=== PATIENT | female | born 1975 | race American Indian/Alaskan Native ===

== ENCOUNTER 2016-08-12 16:47 | Emergency (ER) | payer SELFPAY ==
[~2016-08-12] VITALS: Wt 65.1 kg
[2016-08-12] MEDS ORDERED: PHEN-616 PO (19:33)
[2016-08-12] MEDS ORDERED: NITR-58 PO (19:33)
[2016-08-12 19:38] LABS: URINE BLOOD (Dip) POC 2+ (NEGATIVE)
--- NOTE | 2016-08-12 19:43 | ERD ---
ER Documentation Chief Complaint Date/Time DATE: 08/12/16 TIME: 19:41 Chief Complaint PAIN WITH URINATION, ONSET 4 DAYS, NO VB HPI This is a 40-year-old female presenting to the emergency department complaining of painful urination, urgency and frequency for the past 4 days. Patient denies any hematuria, flank pain, fevers. Patient rates this mild in severity. She states her last menstrual period was earlier this month. She admits to having mild pelvic pain ROS All systems reviewed and are negative except as per history of present illness. Medications Home Meds Active Scripts Phenazopyridine Hcl* (Phenazopyridine Hcl*) 200 Mg Tablet, 200 MG PO TID, #20 TAB Prov:ELVIN PRO PA-C 08/12/16 Nitrofurantoin Monohyd Macrocr* (Macrobid*) 100 Mg Capsr, 100 MG PO BID for 7 Days, CAP Prov:ELVIN PRO PA-C 08/12/16 PMhx/Soc Medical and Surgical Hx: pt denies Medical Hx, pt denies Surgical Hx History of Surgery: No Anesthesia Reaction: No Hx Neurological Disorder: No Hx Respiratory Disorders: No Hx Cardiac Disorders: No Hx Psychiatric Problems: No Hx Miscellaneous Medical Probl: No Hx Alcohol Use: No Hx Substance Use: No Hx Tobacco Use: No Physical Exam Vitals Vital Signs Date Time Temp Pulse Resp B/P Pulse Ox O2 Delivery O2 Flow Rate FiO2 08/12/16 16:54 98.1 95 18 176/83 100 Physical Exam Const: Well-developed well-nourished Head: Atraumatic Eyes: Normal Conjunctiva ENT: Normal External Ears, Nose and Mouth. Neck: Full range of motion..~ No meningismus. Resp: Clear to auscultation bilaterally Cardio: Regular rate and rhythm, no murmurs Abd: Soft, non tender, non distended. Normal bowel sounds Skin: No petechiae or rashes Back: No midline or flank tenderness Ext: No cyanosis, or edema Neur: Awake and alert Psych: Normal Mood and Affect Results 24 hrs Laboratory Tests Test 08/12/16 19:40 Bedside Urine Blood 2+ Bedside Urine Glucose (UA) Negative Bedside Urine Ketones (LAB) Negative Bedside Urine Leukocyte Esterase (L 2+ Bedside Urine Nitrite (LAB) Negative Bedside Urine Protein (LAB) 1+ Bedside Urine pH (LAB) 8.5 Procedures/MDM MDM: 40-year-old female presents to the ER with urinary tract infection. Low suspicion for pyelonephritis, nephrolithiasis, ovarian torsion due to physical examination and diagnostic testing. Urine dipstick was positive for leukocyte esterase, urine test is negative Disposition: Patient is in stable condition and hemodynamically stable for discharge. Prescriptions Macrobid and Pyridium have been given to take as directed. Strict precautions were given to return to the ER if not improving as expected or for any worsening signs and symptoms Departure Diagnosis: Primary Impression: UTI (urinary tract infection) Urinary tract infection type: acute cystitis Hematuria presence: with hematuria Qualified Code: N30.01 - Acute cystitis with hematuria Condition: Stable Patient Instructions: Understanding Urinary Tract Infections (UTIs) Referrals: [facility] YOU HAVE RECEIVED A MEDICAL SCREENING EXAM AND THE RESULTS INDICATE THAT YOU DO NOT HAVE A CONDITION THAT REQUIRES URGENT TREATMENT IN THE EMERGENCY DEPARTMENT. FURTHER EVALUATION AND TREATMENT OF YOUR CONDITION CAN WAIT UNTIL YOU ARE SEEN IN YOUR DOCTORS OFFICE WITHIN THE NEXT 1-2 DAYS. IT IS YOUR RESPONSIBILITY TO MAKE AN APPOINTMENT FOR FOLOW-UP CARE. IF YOU HAVE A PRIMARY DOCTOR --you should call your primary doctor and schedule an appointment IF YOU DO NOT HAVE A PRIMARY DOCTOR YOU CAN CALL OUR PHYSICIAN REFERRAL HOTLINE AT IF YOU CAN NOT AFFORD TO SEE A PHYSICIAN YOU CAN CHOSE FROM THE FOLLOWING [facility] CLINICS [facility] [address] [facility]. [facility] [address] [facility] [facility] [address] [facility] [facility] [address] [facility] [facility] [address] [facility] [facility] [facility] Usted se rutledge hecho un examen mdico de control que le indica que no est en nicki condicin que requiera tratamiento urgente en el Departamento de Emergencia. Un estudio ms profundo y el tratamiento de mena condicin pueden esperar sin ningn riesgo hasta que usted sea atendida/o en el consultorio de mena mdico o nicki cl digna. Es responsabilidad suya arreglar nicki zenaida para el seguimiento del patricia. MANEJO DE CONDICIONES NO URGENTES EN EL FUTURO 1) Si usted tiene un mdico de atencin primaria: Usted debera llamar a mena mdico de atencin primaria antes de venir al departamento de emergencia. Despus de las horas de consultorio, mena doctor o mena asociado/a est disponible por telfono. El mdico o enfermero de roselyn en el servicio telefnico puede asesorarle por lefty medio para atender el problema, o patricia contrario se puede programar nicki zenaida. 2) Si usted no tiene un mdico de atencin primaria: Llame al mdico o clnica de referencia que aparece abajo abdi las horas de consultorio para hacer nicki zenaida para que le vean. CLINICAS: [facility] [phone] [address] [facility] [facility] [phone] [address] [facility]. [facility] [phone] [address] [facility]. [place] [id number] [phone] [facility]. [place] [address] [phone] [facility]. [phone] [address] Additional Instructions: Take all medicines as directed. [place] toda la medicina gretchen y john se le indic. Return to this facility if you are not improving as expected. Regrese a estas instalaciones si no se mejora john esperbamos o john le dijimos. FOLLOW UP WITH YOUR PRIMARY CARE PHYSICIAN TOMORROW.Return to this facility if you are not improving as expected. Visite a mena mdico maana para un EXAMEN.Regrese a estas instalaciones si no se mejora john esperbamos o john le dijimos. ELVIN PRO PA-C Aug 12, 2016 19:42
== END 2016-08-12 19:47 | disposition home or self-care (01) ==
LOC: FTE 16:47
DX: N30.01 Acute cystitis with hematuria (principal)
CPT/HCPCS: 81003; 99283